=== PATIENT | female | born 1955 | race Caucasian/White ===

== ENCOUNTER → 2024-09-30 10:24 | Outpatient (BNVA) | payer OTHER, MEDICARE, SELFPAY | PROVIDERS: PCP Family Medicine; Visit Provider Family Medicine | DX: I10 Essential (primary) hypertension (principal); E03.9 Hypothyroidism, unspecified; Z11.59 Encounter for screening for other viral diseases | CPT/HCPCS: 80053; 80061; 84439; 84443; 85025; 86803 ==

== ENCOUNTER 2024-10-03 13:27 | Outpatient (CLI) | payer MEDICARE, OTHER, SELFPAY ==
--- NOTE | 2024-10-03 14:00 | XR_ITS ---
WS: [id number] DEXA (DUAL ENERGY X-RAY ABSORPTIOMETRY) Bone mineral density was performed using a [facility] machine. HISTORY: postmenopausal COMPARISON: None available. Lumbar spine BMD (L1-L4): 1.259 g/cm2 T score: 0.7 Z score: 2.0 Total hip BMD: Left: 0.913 g/cm2. T score: -0.7 Z score: 0.5 Right: 0.873 g/cm2. T score: -1.1 Z score: 0.2 10 year probability of a major osteoporotic fracture is 10.9%. XR/XR DEXA axial skeleton* [id number] IMPRESSION: OSTEOPENIA based upon the WHO classification for females.
== END 2024-10-03 13:28 | disposition home or self-care (01) ==
LOC: RAD 13:28
PROVIDERS: PCP Family Medicine; Visit Provider Family Medicine
DX: Z78.0 Asymptomatic menopausal state (principal); M85.80 Other specified disorders of bone density and structure, unspecified site
CPT/HCPCS: 77080

== ENCOUNTER 2024-10-17 09:17 | Outpatient (CLI) | payer MEDICARE, OTHER, SELFPAY ==
--- NOTE | 2024-10-17 09:30 | MR_ITS ---
WS: [id number] MRI BRAIN WITHOUT CONTRAST HISTORY: TIA with R eye vision changes, pain R posterior occiput COMPARISON: None available. TECHNIQUE: Diffusion imaging, multiplanar T1, T2 and FLAIR imaging obtained. No evidence for acute infarct or hemorrhage. Mott-white matter differentiation is normal. Normal hippocampal formation. Mild cerebral and cerebellar atrophy. Minimal small vessel changes from ischemia. No large infarct or hemorrhage. No remote infarct. Ventricles and extra-axial spaces are normal. No inferior displacement of cerebellar tonsils. The sella turcica and pituitary gland are unremarkable. Dural venous sinuses and [place] of [place] demonstrate no abnormality on this unenhanced studies. Paranasal sinuses: Clear. Mastoid air cells: Normal. Calvarium and scalp: Intact. MR/MR head wo con* [id number] IMPRESSION: 1. No acute or remote infarct. 2. No signal abnormality in the posterior fossa. 3. Mild cerebral and cerebellar atrophy and small vessel disease.
== END 2024-10-17 09:18 | disposition home or self-care (01) ==
LOC: RAD 09:18
PROVIDERS: PCP Family Medicine; Visit Provider Family Medicine
DX: G45.9 Transient cerebral ischemic attack, unspecified (principal); I67.89 Other cerebrovascular disease; G31.89 Other specified degenerative diseases of nervous system
CPT/HCPCS: 70551

== ENCOUNTER 2024-10-21 10:19 | Outpatient (CLI) | payer MEDICARE, OTHER, SELFPAY ==
--- NOTE | 2024-10-21 10:45 | USCV_ITS ---
Paloma Jacobs Age: 69 Gender: F : 1955 Exam Date: 10/21/2024 10:46 Ordering Phys: Anne Hernandez MD Technologist: [facility] Exam Location: [facility] – [place] Indication: TIA Risk Factors: Previous Vascular Surgery: Right Brachial BP: / Left Brachial BP: / Right Left Velocity (cm/s) Spectral Plaque Velocity (cm/s) Spectral Plaque Syst/Diast Broadening Syst/Diast Broadening 72.20/ 21.30 Prox CCA 89.20 / 22.50 88.10/ 24.70 Mid CCA 88.10 / 19.20 73.90/ 23.60 Distal CCA 76.10 / 21.40 60.90/ 16.70 Prox ICA 63.90 / 21.20 85.90/ 32.40 Mid ICA 81.00 / 28.80 68.60/ 17.10 Distal ICA 69.50 / 24.70 91.10 ECA 83.10 0.80 ICA/CCA 0.80 Antegrade Vertebral Antegrade 43.70/ 10.10 cm/s 39.50/ 10.00 cm/s Tri Subclavian Tri 131.3 158.1 0 0 FINDINGS Comparison: none available. No significant elevation of systolic or diastolic velocities. Waveforms are normal. Mild carotid plaque. CONCLUSIONS Bilateral ICA stenosis less than 50%. Dr. Stephenie Mccullough DO (Electronically Signed) Final Date: 21 October 2024 13:46 S
== END 2024-10-21 10:20 | disposition home or self-care (01) ==
PROVIDERS: PCP Family Medicine; Visit Provider Family Medicine
DX: G45.9 Transient cerebral ischemic attack, unspecified (principal)
CPT/HCPCS: 93880

== ENCOUNTER 2024-11-11 11:40 | Outpatient (CLI) | payer MEDICARE, OTHER, SELFPAY ==
--- NOTE | 2024-11-11 12:00 | USCV_ITS ---
Paloma Jacobs Age: 69 Gender: F : 1955 Exam Date: 11/11/2024 11:52 Ordering Phys: Anne Hernandez MD Technologist: Exam Location: [facility] [place] Indication: cp sob BP: 130 / 80 HR: 78 Rhythm: Sinus Technical Quality: Adequate MEASUREMENTS (Male / Female) Normal Values 2D ECHO LV Diastolic Diameter PLAX 4.1 cm 4.2 - 5.9 / 3.9 - 5.3 cm IVS Diastolic Thickness 1.3 cm 0.6 - 1.0 / 0.6 - 0.9 cm IVS Systolic Thickness 1.9 cm LVPW Diastolic Thickness 1.1 cm 0.6 - 1.0 / 0.6 - 0.9 cm LVPW Systolic Thickness 1.8 cm LVOT Diameter 1.9 cm LV Ejection Fraction 2D Teich 68.6 % LV Ejection Fraction MOD 4C 73.3 % LV Ejection Fraction MOD 2C 70.9 % LV Ejection Fraction 2C AL 71.1 % LA Diameter 3.3 cm RA Systolic Volume 4C AL 35.0 ml RA Systolic Volume 4C MOD 33.6 ml Aorta at Sinotubular Diameter 2.7 cm M-MODE LA Ao Ratio MM 1.1 AV Cusp Separation MM 2.0 cm DOPPLER AV Peak Velocity 148.0 cm/s LVOT Peak Velocity 103.0 cm/s AV Area Cont Eq vti 2.2 cm squared AV Area Cont Eq pk 2.0 cm squared MV Area PHT 5.7 cm squared Mitral E to A Ratio 1.3 TR Peak Velocity 161.0 cm/s TR Peak Gradient 10.4 mmHg PV Peak Velocity 88.0 cm/s FINDINGS Left Ventricle Normal left ventricular size and systolic function, EF 70%.mild left ventricular hypertrophy. No regional wall motion abnormalities. Grade III/IV diastolic dysfunction (restrictive filling pattern), severely elevated filling pressures. Right Ventricle The right ventricle is normal in size and function. Right Atrium The right atrium is normal in size. Left Atrium Mildly increased left atrial size. Mitral Valve Thickened mitral valve. Aortic Valve Thickened aortic valve. Tricuspid Valve No gross abnormalities noted Pulmonic Valve Pulmonic valve not well visualized. Pericardium Normal pericardium without effusion. Aorta Normal ascending aorta dimension. IVC Normal inferior vena cava. CONCLUSIONS Normal left ventricular size and systolic function, EF 70%.mild left ventricular hypertrophy. No regional wall motion abnormalities. Grade III/IV diastolic dysfunction (restrictive filling pattern), severely elevated filling pressures. Mildly increased left atrial size. Thickened mitral valve. Thickened aortic valve. There is no pericardial effusion. There are no intracardiac masses. No similar previous studies are available for comparison Dr Kyung Miranda MD FAC (Electronically Signed) Final Date: 12 November 2024 14:04 S
== END 2024-11-11 11:41 | disposition home or self-care (01) ==
LOC: RAD 11:40
PROVIDERS: PCP Family Medicine; Visit Provider Family Medicine
DX: G45.9 Transient cerebral ischemic attack, unspecified (principal); I51.7 Cardiomegaly; I34.9 Nonrheumatic mitral valve disorder, unspecified; M34.9 Systemic sclerosis, unspecified; I35.9 Nonrheumatic aortic valve disorder, unspecified
CPT/HCPCS: 93306